=== PATIENT | female | born 1985 | race Two or more races ===

== ENCOUNTER → 2017-04-29 | Emergency (ER) | payer OTHER ==
[~2017-04-29] VITALS: Ht 160 cm; Wt 55.9 kg
[~2017-04-29] MED LIST: IBUPROFEN 400 MG TAB PO ONE
[2017-04-29 22:41] VITALS: BP 101/61
== END | disposition home or self-care (01) ==
LOC: FSED 21:19
DX: R50.9 Fever, unspecified (principal); R05 Cough; B34.9 Viral infection, unspecified
CPT/HCPCS: 99282